=== PATIENT | female | born 1985 | race Caucasian/White ===

== ENCOUNTER 2022-05-17 18:00 | Emergency (ER) | payer OTHER, SELFPAY ==
[2022-05-17 18:48] LABS: Urine Blood 3+ (Negative); Urine Glucose Negative (Negative); Urine Protein 3+ (Negative); Urine Specific Gravity 1.025 (1.005-1.030); Urine pH 5.5 (5.0-7.0)
[2022-05-17 19:34] LABS: Urine Bacteria >50 /HPF (<20); Urine Mucus 1+ /HPF (None Seen); Urine RBC 21-50 /HPF (None Seen); Urine WBC Clump Rare /HPF (None Seen)
[2022-05-17] MEDS ORDERED: NA CHLORIDE 0.9% 1,000 ML ONE (21:40)
[2022-05-17 22:06] LABS: Absolute Lymphocytes (CBC) 1.6 K/uL (0.7-4.9); Hematocrit 43.4 % (36.0-45.0); Lymphocytes % 8.8 % (15.3-44.8); MPV 8.5 fL (7.6-11.3); RBC Red Blood Cell Count 4.77 M/uL (3.86-4.86)
[2022-05-17 22:11] LABS: Albumin 3.9 g/dL (3.4-5.0); Bilirubin Total 1.2 mg/dL (0.2-1.0); Potassium 2.7 mmol/L (3.5-5.1); Protein, Total 10.1 g/dL (6.4-8.2)
[2022-05-17 22:27] LABS: Blood Morphology Comment NOT SEEN (NOT SEEN); Platelet Estimate ADEQ; White Blood Cell Scan OK (OK)
[2022-05-17] MEDS ORDERED: KCL 20 MEQ/100 mL IVPB 100 ML IV ONE (23:22)
[2022-05-17] MEDS ORDERED: CEFTRIAXONE 1000 MG/VIAL ONE (23:22)
[2022-05-17] MEDS ORDERED: NA CHLORIDE 0.9% 100 ML ONE (23:22)
[2022-05-17] MEDS ORDERED: NA CHLORIDE 0.9% 50 ML ONE (23:23)
[2022-05-17] MEDS ORDERED: ONDANSETRON 4 MG/2 ML VIAL ONE (23:28)
--- NOTE | 2022-05-17 23:31 | RAD REPORT ---
EXAM DESCRIPTION: CT - Abdomen Pelvis W Contrast - 05/17/2022 11:12 pm CLINICAL HISTORY: Abdominal pain COMPARISON: none. TECHNIQUE: Computed axial tomography of the abdomen pelvis was obtained. 100 cc Isovue-300 was admin istered intravenously. Oral contrast was not requested which limits evaluation of bowel and appendix All CT scans are performed using dose optimization technique as appropriate and may include automated exposure control or mA/KV adjustment according to patient size. FINDINGS: Fatty liver Spleen, pancreas and adrenals unremarkable. Small left renal cyst. Several low to intermediate density areas within the right kidney extending to periphery consistent w ith infection. Within the midpole medially is a 2.6 centimeter area which appears somewhat mass like and may represent early abscess. Stranding is present within the right periurethral fat. Enhancement of the left renal pelvis is present. There is no evidence of diverticulitis. No adnexal mass IMPRESSION: Moderate right pyelonephritis. 2.6 centimeter low to intermediate density area within th e midpole right kidney may represent an an early abscess and can be monitored on follow-up ultrasound Enhancement of the left renal pelvis may represent additional infection.
--- NOTE | 2022-05-17 23:35 | RAD REPORT ---
EXAM DESCRIPTION: Sea Single View05/17/2022 11:29 pm CLINICAL HISTORY: Cough COMPARISON: none FINDINGS: The lungs appear clear of acute infiltrate. The heart is normal size IMPRESSION: No acute abnormalities displayed
[2022-05-17] MEDS ORDERED: KETOROLAC 30 MG/ML INJ ONE (23:49)
[2022-05-17 23:51] LABS: Urine Specific Gravity/Preg 1.025 (1.005-1.030)
--- NOTE | 2022-05-18 00:09 | ER ---
Nurse's Notes [facility] Name: Arlene Newton Age: 36 yrs Sex: Female : 1985 Arrival Date: 05/17/2022 Time: 18:01 Bed 13 Private MD: Diagnosis: Pyelonephritis acute Presentation: 05/17 18:27 Chief complaint: Patient states: I've had fever X 3 days, weak , chills, I break out in iw sweats and body aches. Coronavirus screen: Client presents with at least one sign or symptom that may indicate coronavirus-19. Ebola Screen: Patient negative for fever greater than or equal to 101.5 degrees Fahrenheit, and additional compatible Ebola Virus Disease symptoms Patient denies exposure to infectious person. Patient denies travel to an Ebola-affected area in the 21 days before illness onset. No symptoms or risks identified at this time. Initial Sepsis Screen: Does the patient meet any 2 criteria? No. Patient's initial sepsis screen is negative. Does the patient have a suspected source of infection? No. Patient's initial sepsis screen is negative. Risk Assessment: Do you want to hurt yourself or someone else? Patient reports no desire to harm self or others. Onset of symptoms was May 14, 2022. 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 - Social history:: Smoking status: Patient reports the use of cigarette tobacco products, smokes one-half pack cigarettes per day, smokes one pack cigarettes per day. Screenin:36 Abuse screen: Denies threats or abuse. Denies injuries from another. Nutritional as6 screening: No deficits noted. Tuberculosis screening: No symptoms or risk factors identified. Fall Risk None identified. Assessment: 19:35 General: Appears ill, Behavior is calm, cooperative. Pain: Complains of pain in as6 generalized. Neuro: Level of Consciousness is awake, alert, Reports headache. Respiratory: Reports cough that is Respiratory effort is even, unlabored. GI: Reports nausea. 21:49 Reassessment: Patient appears in no apparent distress at this time. as6 Vital Signs: 18:27 BP 120 / 75; Pulse 93; Resp 16; Temp 97.0; Pulse Ox 98% on R/A; iw 19:38 BP 109 / 57; Pulse 81; Resp 18 S; Pulse Ox 100% on R/A; as6 21:48 BP 114 / 60; Pulse 85; Resp 16 S; Pulse Ox 100% on R/A; as6 22:50 BP 105 / 64; Pulse 81; Resp 18 S; Pulse Ox 100% on R/A; as6 09/ 00:10 BP 107 / 74; Pulse 91; Resp 17 S; Pulse Ox 100% on R/A; as6 00:45 BP 86 / 38; Pulse 82; Resp 16 S; Pulse Ox 99% on R/A; as6 00:54 BP 85 / 46; Pulse 80; Resp 15 S; Pulse Ox 99% on R/A; as6 01:01 BP 91 / 36; Pulse 78; Resp 11 S; Pulse Ox 95% on R/A; as6 01:05 BP 92 / 39; Pulse 77; Resp 12 S; Pulse Ox 100% on R/A; as6 01:09 Weight 81.65 kg (R); as6 01:13 BP 94 / 58; as6 01:27 BP 101 / 50; Pulse 96; Resp 20 S; Pulse Ox 98% on R/A; as6 02:33 BP 106 / 53; Pulse 82; Resp 17 S; Pulse Ox 97% on R/A; as6 ED Course: 05/17 18:01 Patient arrived in ED. am2 18:01 Percy Johnson MD is Attending Physician. kdr 18:28 Triage completed. iw 18:31 Del Wiley PA is PHCP. cp 19:[address], BARB is Primary Nurse. as6 19:18 COVID-19 SARS RT PCR (Document "Date of Onset" if Symptomatic) Sent. as6 19:22 Attending Physician role handed off by Percy Johnson MD kat 19:22 Del Sheehan MD is Attending Physician. kat 19:36 Arm band placed on. as6 19:36 Bed in low position. Call light in reach. Side rails up X 1. as6 21:44 Initial lab(s) drawn, by me, sent to lab. Inserted saline lock: 20 gauge in left wm antecubital area, using aseptic technique. Blood collected. 21:47 CBC with Diff Sent. wm 21:47 CMP Sent. wm 21:47 Lipase Sent. wm 21:49 PO fluids given. as6 22:58 EKG done, by ED staff, reviewed by Del SOMERS. wm 22:59 Client placed on continuous cardiac and pulse oximetry monitoring. NIBP monitoring wm applied. quality assurance monitor chassis on. 23:14 CT Abd/Pelvis - IV Contrast Only In Process Unspecified. EDMS 23:31 XRAY Chest (1 view) In Process Unspecified. EDMS 05/18 00:12 initiated a transfer with Tiff House from [facility]. mw2 00:36 Lights dimmed. Warm blanket given. Head of bed lowered. 01:[address] Sheehan with from [facility]. mw2 02:04 administrative approva given by Tiff House/ patient has been accepted to [address] bed 512/ Dr. Hines accepted the patient in transfer/report to be called to [phone]. 03:16 No provider procedures requiring assistance completed. Patient transferred, IV remains as6 in place. Administered Medications: 05/17 21:47 Drug: NS 0.9% 1000 ml Route: IV; Rate: 1 bolus; Site: left antecubital; as6 05/18 00:16 Follow up: Response: No adverse reaction; IV Status: Completed infusion; IV Intake: as6 1000ml 05/17 23:21 Drug: Rocephin - (cefTRIAXone) 1 grams Route: IVPB; Infused Over: 30 mins; Site: left as6 antecubital; 05/18 00:16 Follow up: Response: No adverse reaction; IV Status: Completed infusion; IV Intake: [id number] 05/17 23:21 Drug: Zofran (Ondansetron) 4 mg Route: IVP; Site: left antecubital; as05/18 03:15 Follow up: Response: No adverse reaction as6 05/17 23:49 Drug: Potassium Chloride 20 mEq Route: IV; Rate: calculated rate; Site: left as6 antecubital; 05/18 03:14 Follow up: Response: No adverse reaction; IV Status: Completed infusion; IV Intake: as6 100ml 05/17 23:49 Drug: Ketorolac 30 mg Route: IVP; Site: left antecubital; as6 05/18 03:15 Follow up: Response: No adverse reaction as6 00:16 Drug: NS 0.9% 1000 ml Route: IV; Rate: 1 bolus; Site: left antecubital; as6 03:15 Follow up: Response: No adverse reaction; IV Status: Completed infusion; IV Intake: as6 1000ml 01:27 Drug: Potassium Effervescent Tablet 50 mEq Route: PO; as6 03:15 Follow up: Response: No adverse reaction as 01:27 Not Given (Other Intervention Used): NS 0.9% (30 ml/kg) 30 ml/kg IV at bolus once; Sepsis Protocol 01:27 Drug: NS 0.9% 500 ml Route: IV; Rate: bolus; Site: left antecubital; as6 03:15 Follow up: Response: No adverse reaction; IV Status: Completed infusion; IV Intake: as6 500ml 01:40 Drug: LevaQUIN (levofloxacin) 750 mg Volume: 150 ml; Route: IVPB; Infused Over: 90 as6 mins; Site: left antecubital; 03:16 Follow up: Response: No adverse reaction; IV Status: Infusion continued upon transfer as6 03:14 Drug: NS 0.9% 1000 ml Route: IV; Rate: 1 bolus; Site: left antecubital; as6 03:16 Follow up: Response: No adverse reaction; IV Status: Infusion continued upon transfer as6 Medication: 03:16 VIS not applicable for this client. as6 Intake: 00:16 IV: 1000ml; Total: 1000ml. as6 00:16 IV: 50ml; Total: 1050ml. as6 03:14 IV: 100ml; Total: 1150ml. as6 03:15 IV: 1000ml; Total: 2150ml. as6 03:15 IV: 500ml; Total: 2650ml. as6 Outcome: 00:08 ER care complete, transfer ordered by MD. de la torre 03:16 Transferred by [facility] to [facility], Transfer form completed. as6 X-rays sent w/ patient. 03:16 Condition: stable 03:16 Instructed on the need for transfer. 03:17 Patient left the ED. as6 Signatures: Dispatcher [employer] EDDel Casas MD MD cha Rittger, Kevin, MD MD kdr Williams, Irene, RN RN Del Long PA PA cp Moreno, Amanda am2 Brennon May mw2 Ada Chapman Ashby, RN RN as6 Corrections: (The following items were deleted from the chart) 05/17 18:41 18:27 Acuity: SARAH [facility] 05/18 01:28 00:12 initiated a transfer with Jennifer Brandon from [facility] mw2 mw2
--- NOTE | 2022-05-18 00:09 | EDPHYS ---
Physician Documentation [facility] Name: Arlene Newton Age: 36 yrs Sex: Female : 1985 Arrival Date: 05/17/2022 Time: 18:01 Bed 13 Private MD: ED Physician Del Sheehan HPI: 05/17 18:30 This 36 yrs old Female presents to ER via Ambulatory with complaints of Fever, Doesn't cp Feel Right. 18:30 The patient reports fever, not measured (subjective). cp 18:30 Onset: The symptoms/episode began/occurred 3 day(s) ago. Associated signs and symptoms: cp Pertinent positives: abdominal pain, backache, chills, headache, body aches, Pertinent negatives: altered mental status, neck stiffness. Severity of symptoms: in the emergency department the symptoms are unchanged despite home interventions. 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 - Social history:: Smoking status: Patient reports the use of cigarette tobacco products, smokes one-half pack cigarettes per day, smokes one pack cigarettes per day. ROS: 18:35 Constitutional: Positive for body aches, chills, Negative for fever, poor PO intake. cp 18:35 Eyes: Negative for injury, pain, redness, and discharge. cp 18:35 ENT: Negative for drainage from ear(s), ear pain, sore throat, difficulty swallowing, difficulty handling secretions. 18:35 Neck: Negative for pain with movement, pain at rest, stiffness. 18:35 Cardiovascular: Negative for chest pain, palpitations. 18:35 Respiratory: Positive for cough, Negative for shortness of breath, wheezing. 18:35 Abdomen/GI: Positive for abdominal pain, Negative for constipation. 18:35 Back: Positive for pain at rest. 18:35 : Positive for urinary symptoms, urinary frequency. 18:35 Skin: Negative for cellulitis, rash. 18:35 Neuro: Positive for headache, Negative for altered mental status, weakness. 18:35 All other systems are negative. Exam: 18:40 Constitutional: The patient appears in no acute distress, alert, awake, cp non-diaphoretic, non-toxic, well developed, well nourished. 18:40 Head/Face: Normocephalic, atraumatic. cp 18:40 Eyes: Periorbital structures: appear normal, Conjunctiva: normal, no exudate, no injection, Sclera: no appreciated abnormality, Lids and lashes: appear normal, bilaterally. 18:40 ENT: External ear(s): are unremarkable, Nose: is normal, Mouth: Lips: moist, Oral mucosa: pink and intact, moist, Posterior pharynx: Airway: no evidence of obstruction, patent. 18:40 Neck: ROM/movement: is normal, is supple, without pain, no range of motions limitations, no meningismus, no nuchal rigidity, Lymph nodes: no appreciated lymphadenopathy. 18:40 Chest/axilla: Inspection: normal. 18:40 Cardiovascular: Rate: normal, Rhythm: regular, Edema: is not appreciated, JVD: is not appreciated. 18:40 Respiratory: the patient does not display signs of respiratory distress, Respirations: normal, no use of accessory muscles, no retractions, labored breathing, is not present, Breath sounds: are clear throughout, no decreased breath sounds, no stridor, no wheezing. 18:40 Abdomen/GI: Inspection: abdomen appears normal, Bowel sounds: active, all quadrants, Palpation: soft, in all quadrants, mild abdominal tenderness, in all quadrants, rebound tenderness, is not appreciated, involuntary guarding, is not appreciated. 18:40 Back: pain, that is mild, of the low back area and mid back area, ROM is normal, Straight leg raises: of both lower extremities does not illicit pain. 18:40 Skin: cellulitis, is not appreciated, no rash present. 18:40 Neuro: Orientation: to person, place \\T\\ time. Mentation: is normal, Motor: moves all fours, strength is normal, Sensation: is normal, Gait: is steady. 22:57 ECG was reviewed by the Attending Physician. cp Vital Signs: 18:27 BP 120 / 75; Pulse 93; Resp 16; Temp 97.0; Pulse Ox 98% on R/A; iw 19:38 BP 109 / 57; Pulse 81; Resp 18 S; Pulse Ox 100% on R/A; as6 21:48 BP 114 / 60; Pulse 85; Resp 16 S; Pulse Ox 100% on R/A; as6 22:50 BP 105 / 64; Pulse 81; Resp 18 S; Pulse Ox 100% on R/A; as6 05/18 00:10 BP 107 / 74; Pulse 91; Resp 17 S; Pulse Ox 100% on R/A; as6 00:45 BP 86 / 38; Pulse 82; Resp 16 S; Pulse Ox 99% on R/A; as6 00:54 BP 85 / 46; Pulse 80; Resp 15 S; Pulse Ox 99% on R/A; as6 01:01 BP 91 / 36; Pulse 78; Resp 11 S; Pulse Ox 95% on R/A; as6 01:05 BP 92 / 39; Pulse 77; Resp 12 S; Pulse Ox 100% on R/A; as6 01:09 Weight 81.65 kg (R); as6 01:13 BP 94 / 58; as6 01:27 BP 101 / 50; Pulse 96; Resp 20 S; Pulse Ox 98% on R/A; as6 02:33 BP 106 / 53; Pulse 82; Resp 17 S; Pulse Ox 97% on R/A; as6 MDM: 05/17 19:22 Patient medically screened. [facility] 23:50 Data reviewed: vital signs, nurses notes, lab test result(s), EKG, radiologic studies, cp CT scan, plain films, I have discussed the patient's presentation/case with the attending Emergency Department Physician; and as a result, I will admit patient. 23:50 Test interpretation: by ED physician or midlevel provider: ECG, plain radiologic studies. 05/18 00:10 Physician consultation: Lyndon Anthony was contacted at 00:10, regarding admission, to the medical/surgical unit. patient's condition, after a discussion of the case, a recommendation for transfer for higher level of care is made. 05/17 18:13 Order name: Flu; Complete Time: 22:38 kdr 05/17 18:15 Order name: Influenza Screen (A ; Complete Time: 19:58 EDMS 05/17 18:32 Order name: COVID-19 SARS RT PCR (Document "Date of Onset" if Symptomatic) 05/17 18:32 Order name: Urine Microscopic Only; Complete Time: 00:09 cp 05/18 00:09 Interpretation: Normal except: UWBC >50; URBC 21-50; UBACT >50; SQEPI 20-50; HYAL 5-10. 05/17 18:48 Order name: Urine Dipstick-Ancillary; Complete Time: 19:58 [facility] 05/17 19:58 Interpretation: Normal except: UKET Trace; UBLD 3+; UPROT 3+; UNIT Positive; UESTR 1+. 05/17 18:49 Order name: Urine --Ancillary (enter results); Complete Time: 23:52 05/17 19:38 Order name: Urine Culture EDMA 05/17 20:00 Order name: CBC with Diff; Complete Time: 22:38 05/17 22:38 Interpretation: Normal except: WBC 18.30; RDW 15.7; SOLANGE% 81.6; LYM% 8.8; NEUT A 14.9; cp MNA 1.6. 05/17 20:00 Order name: CMP; Complete Time: 22:38 05/17 22:39 Interpretation: Normal except: NA 131; K 2.7; CL 91; GLUC 119; GFR 81; ALK 122; BILIT cp 1.2; CA 10.2; TP 10.1; GLOB 6.2; A/G 0.6. 05/17 20:00 Order name: Lipase; Complete Time: 22:38 05/17 20:00 Order name: Lactate; Complete Time: 22:38 05/17 22:40 Interpretation: Reviewed. 05/17 22:28 Order name: CBC Smear Scan; Complete Time: 22:38 [facility] 05/17 22:39 Order name: XRAY Chest (1 view); Complete Time: 23:42 05/17 23:42 Interpretation: Report review. 05/17 18:32 Order name: Urine Dipstick-Ancillary (obtain specimen); Complete Time: 19:18 05/17 18:32 Order name: Urine Test (obtain specimen); Complete Time: 19:18 05/17 20:00 Order name: IV Saline Lock; Complete Time: 21:46 05/17 22:41 Order name: CT Abd/Pelvis - IV Contrast Only; Complete Time: 23:42 05/18 00:10 Interpretation: Report reviewed. 05/17 22:42 Order name: EKG; Complete Time: 22:43 05/17 20:00 Order name: Labs collected and sent; Complete Time: 21:46 cp 05/17 22:41 Order name: EKG - Nurse/Tech; Complete Time: 22:59 as6 05/17 22:42 Order name: EKG - Nurse/Tech; Complete Time: 22:59 cp EC/04 22:57 Rate is 77 beats/min. Rhythm is regular. LA interval is normal. QRS interval is normal. cp QT interval is prolonged at 428 msec. Interpreted by me. Reviewed by me. Administered Medications: 21:47 Drug: NS 0.9% 1000 ml Route: IV; Rate: 1 bolus; Site: left antecubital; 05/18 00:16 Follow up: Response: No adverse reaction; IV Status: Completed infusion; IV Intake: as6 1000ml 05/17 23:21 Drug: Rocephin - (cefTRIAXone) 1 grams Route: IVPB; Infused Over: 30 mins; Site: left [facility] antecubital; 05/18 00:16 Follow up: Response: No adverse reaction; IV Status: Completed infusion; IV Intake: [id number] 05/17 23:21 Drug: Zofran (Ondansetron) 4 mg Route: IVP; Site: left antecubital; 05/18 03:15 Follow up: Response: No adverse reaction 05/17 23:49 Drug: Potassium Chloride 20 mEq Route: IV; Rate: calculated rate; Site: left [facility] antecubital; 05/18 03:14 Follow up: Response: No adverse reaction; IV Status: Completed infusion; IV Intake: as6 100ml 05/17 23:49 Drug: Ketorolac 30 mg Route: IVP; Site: left antecubital; 05/18 03:15 Follow up: Response: No adverse reaction 00:16 Drug: NS 0.9% 1000 ml Route: IV; Rate: 1 bolus; Site: left antecubital; 03:15 Follow up: Response: No adverse reaction; IV Status: Completed infusion; IV Intake: as6 1000ml 01:27 Drug: Potassium Effervescent Tablet 50 mEq Route: PO; 03:15 Follow up: Response: No adverse reaction 01:27 Not Given (Other Intervention Used): NS 0.9% (30 ml/kg) 30 ml/kg IV at bolus once; as6 Sepsis Protocol 01:27 Drug: NS 0.9% 500 ml Route: IV; Rate: bolus; Site: left antecubital; as6 03:15 Follow up: Response: No adverse reaction; IV Status: Completed infusion; IV Intake: as6 500ml 01:40 Drug: LevaQUIN (levofloxacin) 750 mg Volume: 150 ml; Route: IVPB; Infused Over: 90 as6 mins; Site: left antecubital; 03:16 Follow up: Response: No adverse reaction; IV Status: Infusion continued upon transfer as6 03:14 Drug: NS 0.9% 1000 ml Route: IV; Rate: 1 bolus; Site: left antecubital; as6 03:16 Follow up: Response: No adverse reaction; IV Status: Infusion continued upon transfer as6 Disposition: 07:06 Co-signature as Attending Physician, Percy Johnson MD I agree with the assessment and kdr plan of care. Disposition Summary: 05/18/22 00:08 Transfer Ordered Transfer Location: [facility] cp Reason: Higher level of care cp Condition: Stable cp Problem: new cp Symptoms: have improved cp Accepting Physician: Doctor(05/18/22 03:17) as6 Diagnosis - Pyelonephritis acute cp Forms: - Medication Reconciliation Form cp - SBAR form cp Signatures: Dispatcher [employer] Shereen Louis RN RN kl Anderson, Corey, MD MD cha Rittger, Kevin, MD MD kdr Attema, Lee, CERTIFIED PEER SPECIALIST-C CERTIFIED PEER SPECIALIST-Cla1 Del Wiley PA PA cp Carl Lane RN RN as6 Corrections: (The following items were deleted from the chart) 05/17 20:54 20:51 Constitutional: The patient appears in no acute distress, alert, awake, cp non-diaphoretic, non-toxic, well developed, well nourished, uncomfortable, cp 20:54 20:51 Head/Face: Normocephalic, atraumatic. cp cp 20:54 20:51 Eyes: Periorbital structures: appear normal, Conjunctiva: normal, no exudate, no cp injection, Sclera: no appreciated abnormality, Lids and lashes: appear normal, bilaterally, cp 20:54 20:51 ENT: External ear(s): are unremarkable, Nose: is normal, Mouth: Lips: dry, Oral cp mucosa: moist, Posterior pharynx: Airway: no evidence of obstruction, patent, cp :54 20:51 Neck: ROM/movement: is normal, is supple, without pain, no range of motions cp limitations, cp : 20:51 Chest/axilla: Inspection: normal, cp cp : 20:51 Cardiovascular: Rate: tachycardic, Rhythm: regular, Edema: is not appreciated, cp JVD: is not appreciated, cp : 20:51 Respiratory: the patient does not display signs of respiratory distress, cp Respirations: normal, no use of accessory muscles, no retractions, labored breathing, is not present, Breath sounds: are clear throughout, no decreased breath sounds, no stridor, no wheezing, cp : 20:51 Abdomen/GI: Inspection: abdomen appears normal, Bowel sounds: active, all cp quadrants, Palpation: soft, in all quadrants, moderate abdominal tenderness, in all quadrants, rebound tenderness, is not appreciated, involuntary guarding, is not appreciated, cp : 20:51 Back: CVA tenderness, is absent, cp cp :54 20:51 Skin: cellulitis, is not appreciated, no rash present. cp cp 20:54 20:51 Neuro: Orientation: to person, place \\T\\ time. Mentation: is normal, Motor: moves cp all fours, general weakness with no focal deficits, cp 05/18 00:53 00:08 Doctor cp cp 00:53 00:08 Sepsis, unspecified organism cp cp 03:17 00:53 Doctor cp as6
[2022-05-18] MEDS ORDERED: NA CHLORIDE 0.9% 1,000 ML ONE ×2 (00:22→03:22)
[2022-05-18] MEDS ORDERED: POTASSIUM 25 MEQ EFFERV TAB ONE (01:29)
[2022-05-18] MEDS ORDERED: NA CHLORIDE 0.9% 500 ML ONE (01:29)
[2022-05-18] MEDS ORDERED: Levofloxacin 750mg IV 750 MG/150 ML BAG IV ONE (01:45)
[2022-05-18 03:23] VITALS: TEMP 97
[2022-05-18 03:52] VITALS: BP 106/53; O2SAT 97
--- NOTE | 2022-05-18 11:30 | EKG ---
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
== END 2022-05-18 03:17 | disposition short-term general hospital (02) ==
LOC: ER 18:00
DX: N10 Acute pyelonephritis (principal); Z20.822 Contact with and (suspected) exposure to COVID-19; F17.210 Nicotine dependence, cigarettes, uncomplicated
CPT/HCPCS: 96365; 96367; 96361; 93005; 87088; 85025; 87086; 36415; 81025; 83605; 87077; 87186; 83690; 80053; 87804 ×2; 74177; 71045; 96375; 99285; 96366; U0003; Q9967; J3480; J7040; J7030 ×3; J2405; 81003; 81015